=== PATIENT | female | born 1995 | race Caucasian/White ===

== ENCOUNTER 2016-07-08 09:55 | Emergency (ER) | payer OTHER ==
[2016-07-08 10:50] VITALS: BMI 21.9
[2016-07-08 11:22] LABS: RBC URINE 1 /hpf (0-3); URINE BACTERIA RARE (<OCC); URINE BILIRUBIN NEGATIVE (NEGATIVE); URINE BLOOD NEGATIVE (NEGATIVE); URINE COLOR Yellow (YELLOW); URINE GLUCOSE (UA) NORMAL (Normal); URINE KETONE NEGATIVE (NEGATIVE); URINE LEUKOCYTE ESTERASE 3+ Leu/uL (Negative); URINE PROTEIN NEGATIVE (NEGATIVE); URINE UROBILINOGEN NORMAL mg/dL (0.2-1.0); WBC URINE 19 /hpf (0-5)
--- NOTE | 2016-07-08 11:58 | OBHP ---
Datetime: 07/08/2016 11:43 IP Adm Impression Other: uri IP Admit Plan: Discharge home Admit Comment, IP Provider: chief complaint-lower abdominal discomfort HPI 21 y/o at 34.4 wga with c/o lwoer abdominal discomfort.states that she has pain when she walks in lwoer abdominal aperae but improves with rest.the discomfort has been teher since last 2 wee ks but worse this am.pain is intermittent,happens whens he walks and improves with rest and last s am x 15 min.denies vaginal bleeding or loss of fluid course uncomplicated PMH denies PSH denies OBGYN HX ; Miscarriagex1;hx of chlamydiax1 Social hx denies tobaccp,alcohol or illicit drug use Exam see exam section A/P 21 y/o with lower abdomianl discofmort.Suspect discofmort due to .UA suspciious of uti -macrobid given -follow up with priv[facility] obgyn within 1 week -labor, pprom , decreased movement, abruption precautions given Pelvic Type - PN: Adequate Extremities - PN: Normal Abdomen - PN: Normal Lungs - PN: Normal Heart - PN: Normal Neurologic - PN: Normal General - PN: Normal Contraction Comments Provider: none Gestation - Est Wks by US: 34.4 IP Hx Assessment: The History has been Reviewed and is Current EGA AdmitDate IP: 34.4 Vital Signs Provider: Reviewed; Within Normal Limits IP Chief Complaint: Other FHR Category Provider Fetus A: Category I Dilatation, Provider: 0 Genitourinary Exam: Normal DTRs - PN: Normal
== END 2016-07-08 12:00 | disposition home or self-care (01) ==
LOC: C.EROB 09:55
DX: O26.893 Other specified pregnancy related conditions, third trimester (principal); R10.30 Lower abdominal pain, unspecified; Z3A.34 34 weeks gestation of pregnancy